=== PATIENT | female | born 1945 | race Caucasian/White ===

== ENCOUNTER 2016-12-04 05:48 | Day surgery (SDC) | payer MEDICARE ==
--- NOTE | 2016-12-02 12:18 | PCM.ANEPRE ---
Anesthesia Pre-Op Review Reason for Review: mitral valve disease Anesthesia Recommendations: Proceed with Procedure Additional Comments 71 y/o female scheduled for cheilectomy of left foot. S/p mitral valve repair in 2008. Saw forester aide in 06/2015 who reported that she was optimized. Echo 07/2015 showed EF 65% but severe mitral stenosis. No comment from forester aide about mitral stenosis. Patient had > 4 METS and NSQIP < 1%. Low risk surgery. Ok according ATUL/AHA guidelines to proceed pending evaluation by DOS anesthesiologist. Hunter Bullock MD Dec 02, 2016 12:18
[~2016-12-04] VITALS: Ht 160 cm; Wt 82.6 kg
[~2016-12-04 05:48] MED LIST: ASPI-973 PO; CA C1TAB83 PO; HYDR12.55 PO; LEFL20TA18 PO; LORA10CA PO; MULT-1018 PO; SULF500T46 PO; vitamin d3
[2016-12-04] MEDS ORDERED: Ondansetron 2 mg/mL 2 mL Inj ONE (05:49)
[2016-12-04] MEDS ORDERED: fentaNYL-PF 50 mCg/mL 2 mL Inj ONE (05:49)
[2016-12-04] MEDS ORDERED: Propofol 10,000 mCg/mL 20 mL Inj ONE (05:49)
[2016-12-04] MEDS: Lactated Ringer's 1,000 ML IV SCH ×2 (05:56→07:17)
[2016-12-04] MEDS ORDERED: CeFAZolin 2 Gm/50 mL D5W IV Premix IV ONE (06:00)
[2016-12-04 06:21] VITALS: BP 150/81; PULSE 68; RESP 16; O2SAT 94
[2016-12-04 06:31] VITALS: BP 150/81; PULSE 68; RESP 16; O2SAT 94
--- NOTE | 2016-12-04 07:07 | PCM.HPANE ---
Patient Data Surgeon Admitting Provider: Attending Provider:Jair Carlos DPM Primary Care Physician:Elkin Flores MD Other Provider:Taina Crumpingham Anesthesia Reason for Visit Hallux Rigidus Left Foot Ht/WT & BMI Height (Feet): 5 Height (Inches): 3.00 Weight (Kilograms): 82.600 Body Mass Index 32.00 Allergies Coded Allergies: No Known Allergies (Unverified , 12/01/16) Past Anesthesia History Anesthesia History: Denies:: Abnormal Airway, Anesthesia Reactions (was told she woke up during mitral valve surgery), Difficult Intubation, Fam Anesthesia Reaction Diabetes History Hx Diabetes?: No MRSA MRSA: No Medications Blood Thinner: Aspirin Last Dose Blood Thinner: Dec 01, 2016 Hypertension Medication: No Home Meds Incl Beta Giuseppe: No Reported Medications [vitamin d3] No Conflict CheckUnknown Dose DAILY 12/01/16 Sulfasalazine (Sulfazine)500 Mg [id number] Mg PO QID 12/01/16 Multivitamin (Multi Vitamin Daily)1 Each Tablet1 Each PO DAILY 30 Days Ref 0 12/01/16 Leflunomide 20 Mg [id number] Mg PO DAILY 12/01/16 Hydrochlorothiazide 12.5 Mg Xcyfar53.5 Mg PO DAILY 30 Days Ref 0 12/01/16 Loratadine (Claritin)10 Mg [id number] Mg PO DAILY PRN seasonal allergy sx Ref 0 12/01/16 Ca Carbonate/Vitamin D3/Vit K (Calcium + D Soft Chewable Tab)1 Each Tab.chew1 Each PO DAILY 12/01/16 Aspirin 81 Mg [id number] Mg PO DAILY Ref 0 12/01/16 History HEENT History: Positive for:: Sinus Problem (right sinus problems) Denies:: Abnormal Airway Cataracts Difficult Intubation Dysphagia Glaucoma Hearing Problem TMJ Hx of Heart Problems?: Yes Cardiovascular History: Positive for:: Cardiac Surgery (mitral valve 2008) Denies:: AICD Chest Pain Heart Murmur Hypertension Irregular Heartbeat Pacemaker Peripheral Vascular Hx of Respiratory Problem?: Yes Respiratory History: Positive for:: Pneumonia (oct 2015) Denies:: Asthma COPD Emphysema Oxygen Administration Tuberculosis Use of C-PAP Machine Use of Inhalers / NEBS Hx Neurologic Problems?: Yes Neurological History: Positive for:: Headaches (r/t sinus) Denies:: CVA Dizziness Multiple Sclerosis Parkinson's Disease Seizures TIA Hx of GI Problems?: No Gastrointestinal History: Denies:: Cirrhosis Diverticulitis Gall Bladder Disease Gastroesphageal Reflux Heartburn Hepatitis Hiatal Hernia Liver Disease Rectal Bleeding Hx of Problems?: No Genitourinary History: Denies:: Kidney Stones Urinary Tract Infection (occasional) Female Hx: Denies:: Currently (hysterectomy) Problems with Breasts? Skin History: Denies:: History Skin Disorders? Pressure Ulcers Hx Musculoskeletal Problems?: Yes Musculoskeletal History: Positive for:: Rheumatoid Arthritis Denies:: Back Injury Fibromyalgia (ruled out ) Joint Replacement Musculoskeletal Trauma Hx of Psycho/Social Problems?: No Psycho Social History: Denies:: Anxiety Hx Depression Hx Surgeries?: Yes (mitral valve repair, hyst, right foot) Hx Any Other Health Problems?: Yes Other History: Denies:: Cancer Thyroid Disease History Blood Transfusions: Denies:: Accept Blood Products? Blood Transfuse Reaction Blood Transfusions Hx Diabetes: No Hx Alcohol Use: YesAlcoholic Drinks Per Day: half glass dailyHx Substance Use : NoHave You Smoked inLast 12 mo: No Stop/Bang S-Snoring: Do You Snore Loudly: No T-Tired: feel tired, fatigued: No O-Obsered: Observed not breath: No P-Blood Pressure: treated: Yes B- Body Mass Index > 35 kg/m2: No A- Age over 50: Yes N- Neck Large Circumference: No G- Gender Male: No STACY Total Score: 2 Risk Assessment Category Category 1A: Patient has history of documented sleep apnea, and HAS NOT received any narcotic, sedative or anesthesia administration during this stay. Category 1B: Patient has history of documented sleep apnea, and HAS received any narcotic , sedative or anesthesia administration during this stay Category 2: Patient has SUSPECTED Obstructive Sleep Apnea, and HAS received any narcotic , sedative or anesthesia administration during this stay. Category 3: Patient has SUSPECTED Obstructive Sleep Apnea and HAS NOT received narcotic, sedative or anesthesia administration during this stay. Category 4: Outpatient in Procedural Areas with known sleep apnea or who screen positive for High Risk via the STOP/BANG questionnaire. Exam Exam Vital Signs Vital Signs Date Time Temp Pulse Resp B/P Pulse Ox O2 Delivery O2 Flow Rate FiO2 12/04/16 06:31 36.2 68 16 150/81 94 Room Air 12/04/16 06:21 36.2 68 16 150/81 94 Room Air General Appearance: Alert, Oriented X3, Cooperative HEENT/AIRWAY: MP 2, Neck Movement (50% ROM), Mouth Opening (WNL) Lungs: Clear to Auscultation Heart: Exam Unremarkable Meds/Labs/Diagnostics Admission Meds Current Medications Lactated Ringer's (Lr) 1,000 ml @ 120 mls/hr [id number] IV Last administered on t 05:56; Start 12/04/16 at 05:00; Stop 12/04/16 at 13:19 Plan Impression Patient chart reviewed, patient interviewed and anesthestic plan with risks, benefits, and alternatives discussed, and informed consent obtained. NPO Status: 7PM ASA Physical Status: ASA2 Mod Systemic Disease Anesthetic Plan: GA Bene/Risks/Altern/Consents: Yes HP Complete Prior to Induction: Yes Rajan Singh MD Dec 04, 2016 07:07
[2016-12-04] MEDS ORDERED: Lactated Ringer's 1,000 ML IV SCH (07:57)
[2016-12-04] MEDS ORDERED: Lactated Ringer's 500 ML IV PRN (07:57)
[2016-12-04] MEDS ORDERED: Atropine 0.4 mg/mL Inj IVPUSH PRN (08:00)
[2016-12-04] MEDS ORDERED: Ondansetron 2 mg/mL 2 mL Inj IVPUSH PRN (08:00)
[2016-12-04] MEDS ORDERED: fentaNYL-PF 50 mCg/mL 2 mL Inj IVPUSH PRN (08:00)
[2016-12-04] MEDS ORDERED: Dexamethasone 4 mg/mL Inj IVPUSH PRN (08:00)
[2016-12-04] MEDS ORDERED: hydrALAZINE 20 mg/mL Inj IVPUSH PRN (08:00)
[2016-12-04] MEDS ORDERED: Labetalol 5 mg/mL 4 mL Inj IV PRN (08:00)
[2016-12-04] MEDS ORDERED: HYDROmorphone 1 mg/mL Inj IVPUSH PRN (08:00)
[2016-12-04] MEDS ORDERED: Phenylephrine 10,000 mCg/mL Inj IVPUSH PRN (08:00)
[2016-12-04] MEDS ORDERED: EPHEDrine Sulfate 50 mg/mL Inj IVPUSH PRN (08:00)
[2016-12-04] MEDS ORDERED: Bupivacaine 0.5% 50 mL Inj INFILTRATE ONE (08:02)
[2016-12-04] MEDS ORDERED: Dexamethasone 4 mg/mL Inj IV ONE (08:02)
--- NOTE | 2016-12-04 08:34 | PCM.PODPO ---
Podiatry Operative Report Date of Service: Dec 04, 2016 Date of Service Dec 04, 2016 Pre Operative Diagnosis Hallux Rigidus left Post Operative Diagnosis same Procedure Cheilectomy first MPJ left foot Surgeon Surgeon: Jair Carlos DPM Assistants: None Indication for Procedure Hallux Rigidus left Findings same Details of Procedure Patient is placed on the table in the supine position and surgical timeout observed. Upon initiation of general anesthesia by the anesthesiologist a well- padded pneumatic ankle tourniquet is applied and the foot prepped and draped in the usual aseptic manner. Exsanguination achieved utilizing and Esmarch bandage , the cuff was inflated and attention directed to the dorsal first metatarsophalangeal joint of the left foot where an approximately 5 cm dorsomedial linear incision was made medial to the extensor hallucis longus tendon. Incision was deepened via sharp and blunt dissection with superficial vessels cauterized a linear periosteal and capsular incision made exposing the joint. There was noted to be large osteochondral loose body on the dorsal aspect of the joint as well as exuberant exophytic proliferation on the dorsal aspect of the first metatarsal head as well as periarticular osteophytes and dorsal lipping of the proximal phalangeal base. There was significant full- thickness chondral erosion of the first metatarsal head and generalized thinning of the proximal phalangeal base. Subchondral bone was fenestrated with a small low-speed drill to promote fibrocartilaginous regrowth. The dorsal cheilectomy cuts were made with care taken to leave sufficient bone for eventual arthrodesis if this becomes necessary in the future. There was noted to be approximately 25-30 range of motion. The site was copiously irrigated with antibiotic solution capsular tissues were repaired with 4-0 Vicryl and skin and subcutaneous tissues with with 4-0 Prolene. An antibiotic ointment Adaptic dressing was applied followed by a mildly compressive bandage on release of the tourniquet normal perfusion returned promptly. The patient left the operating suite in apparently satisfactory condition there were no complications. Grafts, Implants: None Complications There were no periprocedural complications identified. Condition Stable Anesthetic Administered: MAC Drains: None Catheters: None Output, Estimated Blood Loss: 0 Blood Admin during surgery: No Surgical Cast or Splint: Post-op Boot Surgical Specimen Removed: No Specimen sent to Pathology: No Post Operative Plan f/u as o/p in days Jair Carlos DPM Dec 04, 2016 08:34
[2016-12-04 08:35] VITALS: BP 105/58; PULSE 64; RESP 16; O2SAT 95
[2016-12-04] MEDS ORDERED: oxyCODONE-Acetamin 5-325 mg Tablet PO PRN (08:40)
--- NOTE | 2016-12-04 08:52 | PCM.ANEP1 ---
Post Anesthesia Phase 1 PACU Phase 1 Assessment Date of Service: Dec 04, 2016 Vital Signs Vital Signs Date Time Temp Pulse Resp B/P Pulse Ox O2 Delivery O2 Flow Rate FiO2 12/04/16 08:35 36.1 64 16 105/58 95 Room Air 12/04/16 06:31 36.2 68 16 150/81 94 Room Air 12/04/16 06:21 36.2 68 16 150/81 94 Room Air Anesthetic Administered: GA Level of Alertness: Awake, talking HOFFMAN's with Equal Strength: Yes Pain: No Nausea or Vomiting: No Oxygen Delivery: Room Air Lungs: Normal Air Movement Rajan Singh MD Dec 04, 2016 08:52
[2016-12-04 09:16] VITALS: BP 115/65; PULSE 70; RESP 16; O2SAT 96
--- NOTE | 2016-12-04 09:48 | PCM.ANEP2 ---
Post Anesthesia Evaluation ASA/CMS Post Anesthesia VS in Patient's Normal Range?: Yes Resp Stable; Airway Patent?: Yes CV Function & Hydration Stable: Yes Mental Status Recovered?: Yes Pain control Satisfactory?: Yes N/V Control Satisfactory?: Yes Rajan Singh MD Dec 04, 2016 09:48
== END 2016-12-04 23:59 | disposition home or self-care (01) ==
LOC: SAS 05:48
PROVIDERS: ATTEND Podiatrist
DX: M20.22 Hallux rigidus, left foot (principal); Z79.82 Long term (current) use of aspirin; Z79.899 Other long term (current) drug therapy